=== PATIENT | male | born 1995 | race Two or more races ===

== ENCOUNTER 2020-01-27 18:39 | Emergency (ER) | payer MEDICAID, OTHER ==
[~2020-01-27] VITALS: Ht 177.8 cm; Wt 83.8 kg
[2020-01-27] MEDS ORDERED: PLEASE ENTER ALLERGIES MC SCH (19:00)
[2020-01-27] MEDS ORDERED: methylPREDNISolone SOD SUCC 125 MG/2 ML IV ONE (19:00)
[2020-01-27] MEDS ORDERED: methylPREDNISolone SOD SUCC 125 MG/2 ML ONE (19:17)
[2020-01-27] MEDS ORDERED: DIPHENHYDRAMINE 50 MG/ML, 1ML IVPush ONE (19:30)
[2020-01-27] MEDS ORDERED: FAMOTIDINE 20 MG/2 ML IVPush ONE (19:30)
[2020-01-27] MEDS ORDERED: EPINEPHRINE 1 MG/ML, 1ML SQ ONE (19:30)
[2020-01-27] MEDS ORDERED: SODIUM CHLORIDE FLUSH 10ML SYR IVF ONE (19:30)
[2020-01-27] MEDS ORDERED: SODIUM CHLORIDE 0.9% 1,000ML IVBOLUS ONE (19:30)
[2020-01-27] MEDS ORDERED: DIPHENHYDRAMINE 50 MG/ML, 1ML ONE (19:34)
[2020-01-27] MEDS ORDERED: FAMOTIDINE 20 MG/2 ML ONE (19:34)
[2020-01-27 19:47] VITALS: BP 139/79
--- NOTE | 2020-01-27 19:48 | NUR ---
PT RESTING ON GURNEY, STATES HE IS FEELING BETTER AFTER DOSE OF SOLUMEDROL. PT MEDICATED PER MAY, EPI HELD AT THIS TIME PT IS SHOWING IMPROVEMENT.
[2020-01-27 20:19] LABS: BASOPHILS % (AUTO) 0 % (0-1); EOSINOPHILS % (AUTO) 2 % (1-7); LYMPHOCYTES % (AUTO) 40 % (22-44); MEAN CORPUSCULAR HEMOGLOBIN 29.8 pg (27.5-34.5); MEAN CORPUSCULAR HGB CONC 33.9 g/dL (33.2-36.2); MEAN PLATELET VOLUME 9.4 fL (7.4-10.4); MONOCYTES % (AUTO) 9 % (2-9); NEUTROPHILS % (AUTO) 49 % (42-75); PLATELET COUNT 169 x10^3/uL (130-400); RED BLOOD COUNT 4.79 x10^6/uL (4.38-5.82); RED CELL DISTRIBUTION WIDTH 13.3 % (9.4-14.8)
[2020-01-27 20:20] LABS: MD NO
[2020-01-27 20:27] LABS: ANION GAP 5 mmol/L (5-15); CALCIUM 8.2 mg/dL (8.5-10.1); CHLORIDE 111 mmol/L (98-107)
--- NOTE | 2020-01-27 20:27 | NUR ---
PT COLOR IMPROVED AND RASH IS DECREASING ON CHEST AND ARMS. PT STATES HE FEELS GOOD ABOUT GOING HOME. PT UP FOR RECHECK AT THIS TIME.
== END 2020-01-27 21:46 | disposition home or self-care (01) ==
LOC: ED 20:50
DX: T78.3XXA Angioneurotic edema, initial encounter (principal); R21 Rash and other nonspecific skin eruption; R94.31 Abnormal electrocardiogram [ECG] [EKG]
CPT/HCPCS: 36415; 80048; 82040; 85025; 93005; 96361; 96374; 96375; 99284; J1200; J2930; J7030